=== PATIENT | male | born 1965 | race Caucasian/White ===

== ENCOUNTER 2017-01-31 09:15 | Day surgery (SDC) | payer BC ==
[~2017-01-31 09:15] MED LIST: RINGER'S SOLUTION,LACTATED 1,000 ML IV PRN; ceFAZolin SODIUM 1 GM VIAL IV PRN
[2017-01-31] MEDS ORDERED: RINGER'S SOLUTION,LACTATED 1,000 ML IV ONE (09:40)
[2017-01-31] MEDS ORDERED: BUPIVACAINE HCL/EPINEPHRINE/PF 30 ML VIAL IJ ONE ×2 (10:25)
[2017-01-31] MEDS: ROPIVACAINE HCL/PF 40 MG in NORMAL SALINE 16 ML IJ PRN ×2 (10:38→11:05)
--- NOTE | 2017-01-31 11:27 | OR ---
Operative Report - Dictated Report Narrative: Date: 01/31/2017 Physician: Kyle Spence M.D. Paper Gluing Operator: Mk Duran PA-C Preoperative diagnosis: Right Knee medial meniscus tear Postoperative diagnosis: Right Knee medial meniscus tear, intra-articular loose body Procedure: Right knee arthroscopy with partial medial meniscectomy, removal of intra-articular loose body, abrasion chondroplasty of the trochlea Anesthesia: MAC Plus local Complications: None Estimated blood loss: Minimal Tourniquet time: 46 min @ 300 mmHg Specimens: None Retained implants: None Drains: None Indications: Gustavo Is a 51 year-old male who has been followed in my clinic with complaints of knee pain consistent with suspected medial meniscal pathology. 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 Physical exam and diagnostic imaging were consistent with these complaints and concern for medial meniscal pathology. Conservative measures have failed including, but not limited to, passage of time, activity modification, medications, and injections. The risks, benefits, and alternatives were discussed in clinic. The risks being , bleeding, infection, blood clots, nerve, tendon, ligament , blood vessel injury, persistent pain, arthrosis, need for additional procedures, and persistent symptoms. Consent was obtained in the clinic. Procedure: After marking the correct extremity in the preoperative holding area, a timeout was performed in the operating room. IV antibiotics consisting of 2 g of Ancef were administered prior to the procedure. A well-padded tourniquet was applied to the operative upper thigh. The leg was prepped and draped in a standard sterile fashion. 0.5% Marcaine with epinephrine was infused into the projected portal sites as well as the intra-articular space. A kayla incision was made for inferior lateral portal. A blunt trocar and cannula was introduced into the knee. The suprapatellar pouch revealed no loose bodies. The medial patella facet showed grade 1 chondral changes. The lateral patella facet showed and 1 chondral changes. The trochlea showed a focal 1 x 1.5 cm area of grade 3 chondral change in the central aspect of the groove. The medial gutter revealed no loose bodies. The medial joint space was then entered utilizing a lateral post and valgus stress. A spinal needle was utilized for guidance into placement of an anterior medial portal. This was placed just superior to the medial meniscus ensuring that we could reach the posterior aspect of the medial joint space. A kayla incision was made in the site, and the probe was introduced to the knee. The medial joint space was examined, and the medial femoral condyle showed grade 2 chondral cover seamer the lateral aspect just adjacent to the notch. The medial tibial plateau showed grade 1 chondral change. The medial meniscus demonstrated a large complex degenerative tear involving the entirety of the posterior horn. The notch was then examined, and the ACL was confirmed to be absent. The PCL was noted to be intact. The lateral joint space was then examined using a varus force in the figure 4 position. Lateral femoral condyle showed no significant chondral changes. Lateral tibial plateau showed no significant chondral changes. The lateral meniscus showed no pathology. The lateral gutter showed no loose bodies. Having identified the surgical pathology, a series of biters and tila were utilized in order to debride the medial meniscus. The unstable and loose flaps were debrided as well as the inferior leaflet of the horizontal cleavage portion. After all of this was debrided the posterior horn was probed and found to be completely unstable and I was able to flip it into the joint. At this point was determined that we needed to debride the entirety of the posterior horn of the medial meniscus. This was completed using the shaver and a straight biter. During the debridement a approximately 8 mm bony loose body was noted in the posterior aspect of the knee. This was removed with an arthroscopic grasper. Once we had completed our debridement of the medial meniscus were turned our attention to the trochlear groove. Abrasion chondroplasty was performed to the small cartilage defect in the central aspect of the groove. Once it was felt that we adequately addressed the pathology, the knee was thoroughly irrigated. The fluid was evacuated ensuring that we have removed all meniscal, chondral, and any other loose bodies. A final evaluation of the joint showed no additional pathology. The fluid was then evacuated of the knee, and the trocar and camera were removed from the joint. The wounds were closed with interrupted nylon after placing 20 mL of 0.2% ropivacaine into the joint. Dressings consisting of Xeroform, 4 x 4, ABD, soft roll, and an Nghia were applied. All sponge, needle, blade, and instrument counts were correct prior to closing the wounds. The patient was awoken and transferred to the post-anesthesia care unit in stable condition.
[2017-01-31 12:25] VITALS: BP 134/91
== END 2017-01-31 09:16 | disposition home or self-care (01) ==
LOC: AMB 09:15
PROVIDERS: ATTEND Orthopaedic Surgery
PROC: 0SBC4ZZ Excision of Right Knee Joint, Percutaneous Endoscopic Approach (ICD-10-PCS; principal; 2017-01-31 13:00)
DX: M23.221 Derangement of posterior horn of medial meniscus due to old tear or injury, right knee (principal); M23.41 Loose body in knee, right knee; M10.9 Gout, unspecified; Z68.31 Body mass index [BMI] 31.0-31.9, adult